=== PATIENT | male | born 1975 | race Caucasian/White ===

== ENCOUNTER 2017-03-28 12:19 | Emergency (ER) | payer OTHER ==
[~2017-03-28] VITALS: Ht 175.2 cm; Wt 136.1 kg
[2017-03-28] MEDS ORDERED: PERCOCET 325 MG1 TA2 PO (15:15)
== END 2017-03-28 14:44 | disposition home or self-care (01) ==
LOC: ED 12:19
DX: S82.891A Other fracture of right lower leg, initial encounter for closed fracture (principal); W10.9XXA Fall (on) (from) unspecified stairs and steps, initial encounter; Y93.89 Activity, other specified; Y92.89 Other specified places as the place of occurrence of the external cause; Y99.9 Unspecified external cause status

== ENCOUNTER → 2017-04-02 | Day surgery (SDC) | payer OTHER ==
[2017-03-29 15:53] LABS: BILIRUBIN NEGATIVE (NEGATIVE); BLOOD NEGATIVE (NEGATIVE); CLARITY CLEAR (CLEAR); COLOR YELLOW (YELLOW); GLUCOSE NEGATIVE (NEGATIVE); KETONE NEGATIVE (NEGATIVE); LEUKO ESTERASE NEGATIVE (NEGATIVE); NITRITE NEGATIVE (NEGATIVE); PH 5.5 (5.0-9.0); PROTEIN NEGATIVE (NEGATIVE); SPECIFIC GRAVITY 1.015 (1.005-1.030); UROBILINOGEN 0.2 E.U./dl (0.2-1.0)
[2017-03-29 15:58] LABS: BASO % 0.3 % (0.0-1.0); EOS # 0.3 10*3/uL (0.0-0.4); EOS % 2.7 % (1.0-4.0); HEMATOCRIT 44.4 % (42.0-52.0); HEMOGLOBIN 14.3 g/dl (14.0-18.0); IG # 0.1 10*3/uL (0.0-0.1); LYMPH # 1.9 10*3/uL (1.3-4.4); LYMPH % 19.9 % (27.0-41.0); MEAN CELL VOLUME 95.7 fl (80.0-94.0); MEAN CORPUSCULAR HGB 30.8 pg (27.0-31.0); MEAN CORPUSCULAR HGB CONC 32.2 g/dl (33.0-37.0); MEAN PLATELET VOLUME 10.5 fl (9.6-12.3); MONO # 0.9 10*3/uL (0.1-1.0); MONO % 9.5 % (3.0-9.0); NEUT # 6.5 10*3/uL (2.3-7.9); NEUT % 67.1 % (47.0-73.0); PLATELET COUNT AUTOMATED 188 10*3/uL (130-400); RED BLOOD COUNT 4.64 10*6/uL (4.50-5.90); WHITE BLOOD COUNT 9.7 10*3/uL (4.8-10.8)
[2017-03-29 16:03] LABS: EPITHELIAL CELLS 45-50
[2017-03-29 16:04] LABS: BACTERIA TRACE; RBC 0-2 rbc/hpf (0-2); WBC 0-2 wbc/hpf (0-5)
[2017-03-29 16:25] LABS: BUN 10 mg/dl (7-24); CARBON DIOXIDE 27 mmol/L (21-32); CHLORIDE 109 mmol/L (98-107); EST GLOM FILT AFRICAN AMERICAN > 60 ml/min; GLUCOSE 136 mg/dL (65-99); POTASSIUM 4.1 mmol/L (3.5-5.1); SODIUM 142 mmol/L (136-145)
[~2017-04-02] VITALS: Ht 175.2 cm; Wt 133.4 kg
[~2017-04-02] MED LIST: OXYCODONE AND A1 TA4 PO; PERCOCET 325 MG1 TA2 PO; PERCOCET 325 MG1 TA5 PO; ZOFRAN4 MG PO
--- NOTE | ~2017-04-02 | O ---
[place], [place] OPERATIVE NOTE NAME: LEIDY REYNAGA [facility] #: [id number] UNIT #: [id number] ROOM: DOCTOR: SALLIE ASCENCIO DO BIRTHDATE: [birth year] DOS: 04/02/2017 PREOPERATIVE DIAGNOSIS: Right ankle bimalleolar fracture. POSTOPERATIVE DIAGNOSIS: Right ankle bimalleolar fracture. PROCEDURE: Open reduction and internal fixation of right ankle fracture. SURGEON: Sallie Ascencio DO FIRST ASSISTANTS: Rachel and Carey. ANESTHESIA: General LMA intubation. INDICATIONS: The patient is a 41-year-old male with a history of a fall at home on the stairs. He suffered a fracture of the right ankle with a spiral oblique fracture of the fibula, a small avulsion from the medial malleolus and what appeared to be a widened mortise. The risks and benefits of the procedure were explained to the patient preoperatively. Preoperative labs and x-rays were obtained. It is noted that the patient came in for his surgery without the previously applied splint. DESCRIPTION OF PROCEDURE: The right ankle was marked in the holding room. The patient was brought to the operative suite. Timeout was performed. General anesthetic with endotracheal intubation was performed. The patient received Ancef 2 grams IV piggyback. The right lower extremity was prepped and draped in usual orthopedic manner. The extremity was elevated. The tourniquet was inflated to 350 mmHg. The lateral incision was planned and marked with a marking pen. C-arm was used to confirm the location. The incision was made sharply with a scalpel. Subcutaneous tissue was spread down to the level of the periosteum. Periosteum and hematoma were cleared from the fracture site. The area was copiously irrigated with normal saline. A direct reduction was performed and held with a bone holding clamp. C-arm was used to verify the reduction of the fibula. A lag screw was placed from anterior to posterior. A 7-hole plate was bent to the conformity of the distal fibula. This was held in place and evaluated under C-arm. The screw holes were drilled and filled with 4 cortical screws proximally and 2 cancellous screws distally. Position was evaluated under C-arm. The reduction was found to be adequate. The mortise was noted to be congruent. The ankle was stressed in both a varus and valgus direction and there was noted to be no significant tilting of the talus within the mortise. The small avulsion fracture at the medial malleolus was noted to be in an acceptable position. The area was copiously irrigated with normal saline. The wound was closed in a layered fashion with 2-0 Vicryl followed by 3-0 Vicryl and skin efrain. The incisions as well as the ankle joint were injected with Marcaine 0.5% plain. Xeroform, 4 x 4s, and Webril was applied. The tourniquet was released. ABD pads were added to the metatarsal heads and calcaneus. A well-padded posterior [place], [place] OPERATIVE NOTE NAME: LEIDY REYNAGA Jamarcus UNIT #: [id number] ROOM: DOCTOR: SALLIE ASCENCIO DO BIRTHDATE: [birth year] splint with a stirrup reinforcement was applied. The dressing was completed with an Jony bandage. The anesthetic was reversed. The patient was extubated and taken to the recovery room in satisfactory condition. Sponge and needle count correct. ESTIMATED BLOOD LOSS: 5 mL. SPECIMENS: None. DRAINS: None. PACKING: None. COMPLICATIONS: None. IMPLANTS: [employer] 7-hole 1/3rd tubular plate; [employer]om[employer] cortical screws 3.5 mm, measuring 14 mm, 16 mm, 18 mm x2; [employer] cancellous screws measuring 20 mm x2; partially-threaded screw measuring 26 mm. FINDINGS: Spiral oblique fracture of the fibula, distal with avulsion fracture of the medial malleolus. SALLIE ASCENCIO DO CM:OPRECORD:OPERATIVE NOTE 1000 1029 SALLIE ASCENCIO DO 04/03/17 1028 interface
[2017-04-02 07:25] VITALS: BP 114/80
[2017-04-02 09:22] VITALS: BP 118/67
[2017-04-02 09:35] VITALS: BP 128/67
[2017-04-02 09:50] VITALS: BP 115/59
[2017-04-02 10:00] VITALS: BP 120/50
[2017-04-02 10:20] VITALS: BP 117/77
== END | disposition home or self-care (01) ==
LOC: SDC 03-29 14:00
PROVIDERS: Orthopaedic Surgery
DX: S82.841A Displaced bimalleolar fracture of right lower leg, initial encounter for closed fracture (principal); W10.9XXA Fall (on) (from) unspecified stairs and steps, initial encounter; Y93.9 Activity, unspecified; Y92.9 Unspecified place or not applicable; Y99.9 Unspecified external cause status

== ENCOUNTER → 2017-04-17 | Outpatient (CLI) | payer OTHER | END | disposition home or self-care (01) | LOC: ORTHO 00:33 | DX: S82.841D Displaced bimalleolar fracture of right lower leg, subsequent encounter for closed fracture with routine healing (principal); M77.31 Calcaneal spur, right foot; Z98.890 Other specified postprocedural states; X58.XXXD Exposure to other specified factors, subsequent encounter ==

== ENCOUNTER → 2017-05-10 | Outpatient (CLI) | payer OTHER | END | disposition home or self-care (01) | LOC: ORTHO 02:56 | DX: S82.51XD Displaced fracture of medial malleolus of right tibia, subsequent encounter for closed fracture with routine healing (principal); X58.XXXD Exposure to other specified factors, subsequent encounter; Z47.1 Aftercare following joint replacement surgery ==

== ENCOUNTER → 2017-05-31 | Outpatient (CLI) | payer OTHER | END | disposition home or self-care (01) | LOC: ORTHO 00:24 | DX: S82.891D Other fracture of right lower leg, subsequent encounter for closed fracture with routine healing (principal); X58.XXXD Exposure to other specified factors, subsequent encounter ==

== ENCOUNTER → 2017-06-26 | Outpatient (CLI) | payer OTHER | END | disposition home or self-care (01) | LOC: ORTHO 03:23 | DX: S82.841D Displaced bimalleolar fracture of right lower leg, subsequent encounter for closed fracture with routine healing (principal) ==

== ENCOUNTER 2017-12-24 16:10 | Emergency (ER) | payer OTHER ==
[~2017-12-24] VITALS: Ht 175.2 cm; Wt 136.1 kg
[2017-12-24] MEDS ORDERED: ROBAXIN500 M1 PO (19:08)
== END 2017-12-24 19:10 | disposition home or self-care (01) ==
LOC: ED 16:10
DX: S13.8XXA Sprain of joints and ligaments of other parts of neck, initial encounter (principal); S00.03XA Contusion of scalp, initial encounter; W01.0XXA Fall on same level from slipping, tripping and stumbling without subsequent striking against object, initial encounter; Y93.89 Activity, other specified; Y92.69 Other specified industrial and construction area as the place of occurrence of the external cause; Y99.9 Unspecified external cause status

== ENCOUNTER → 2023-04-08 | Outpatient (CLI) | payer BC ==
[~2023-04-08] MED LIST changes: +ROBAXIN500 M1 PO
[2023-04-08 16:42] LABS: BASO # 0.1 10*3/uL (0.0-0.1); BASO % 0.6 % (0.0-1.0); BILIRUBIN Negative (Negative); BLOOD Negative (Negative); CLARITY Clear (Clear); COLOR Yellow (Yellow); EOS # 0.2 10*3/uL (0.0-0.4); EOS % 1.5 % (1.0-4.0); GLUCOSE Negative (Negative); HEMATOCRIT 47.9 % (42.0-52.0); KETONE Negative (Negative); LEUKO ESTERASE Negative (Negative); LYMPH % 20.8 % (27.0-41.0); MEAN CELL VOLUME 91.6 fl (80.0-94.0); MEAN CORPUSCULAR HGB CONC 33.8 g/dl (33.0-37.0); MEAN PLATELET VOLUME 10.7 fl (9.6-12.3); MONO # 0.7 10*3/uL (0.1-1.0); MONO % 6.9 % (3.0-9.0); NEUT # 6.8 10*3/uL (2.3-7.9); NEUT % 69.7 % (47.0-73.0); NITRITE Negative (Negative); PH 5.5 (4.5-8.0); PLATELET COUNT AUTOMATED 230 10*3/uL (130-400); RED BLOOD COUNT 5.23 10*6/uL (4.50-5.90); RED CELL DISTRI WIDTH 13.1 % (0-14.5); RETICULOCYTE % 2.18 % (0.50-2.50); SPECIFIC GRAVITY 1.025 (1.001-1.030); WHITE BLOOD COUNT 9.7 10*3/uL (4.8-10.8)
[2023-04-08 16:54] LABS: BACTERIA TRACE; RBC 0-2 rbc/hpf (0-2)
[2023-04-08 17:21] LABS: ALKALINE PHOSPHATASE 77 U/L (46-116); BUN 10 mg/dl (9-23); CHLORIDE 107 mmol/L (98-107); CHOLESTEROL 190 mg/dL (<200); GAMMA GLUTAMYL TRANSPEPTIDASE 28 U/L (0-73); LDL CHOLESTEROL 127 mg/dL (9-159); POTASSIUM 3.6 mmol/L (3.4-5.1); SGPT/ALT 22 U/L (10-49); T3 UPTAKE 24.5 % (22.4-36.7); THYROID STIM HORMONE (HS) 1.256 uIU/ml (0.550-4.780); THYROXINE (T4) TOTAL 8.9 ug/dl (4.5-10.9); TOTAL PROTEIN 7.3 gm/dL (6.0-8.0); TRIGLYCERIDES 171 mg/dl (<150)
== END | disposition home or self-care (01) ==
LOC: LAB 16:04
PROVIDERS: ATTEND Family Medicine
DX: Z12.5 Encounter for screening for malignant neoplasm of prostate (principal); E78.5 Hyperlipidemia, unspecified; R79.89 Other specified abnormal findings of blood chemistry; R53.83 Other fatigue; R74.8 Abnormal levels of other serum enzymes; E55.9 Vitamin D deficiency, unspecified

== ENCOUNTER → 2025-05-04 | Outpatient (CLI) | payer BC ==
[2025-05-04 13:27] LABS: BASO # 0.1 10*3/uL (0.0-0.1); BASO % 0.6 % (0.0-1.0); BILIRUBIN Negative (Negative); BLOOD Negative (Negative); CLARITY Cloudy (Clear); COLOR Yellow (Yellow); EOS # 0.1 10*3/uL (0.0-0.4); EOS % 1.1 % (1.0-4.0); KETONE Trace (Negative); LEUKO ESTERASE Negative (Negative); MEAN CELL VOLUME 91.8 fl (80.0-94.0); MEAN CORPUSCULAR HGB 31.2 pg (27.0-31.0); MEAN PLATELET VOLUME 10.4 fl (9.6-12.3); MONO # 0.7 10*3/uL (0.1-1.0); MONO % 6.3 % (3.0-9.0); NEUT # 8.2 10*3/uL (2.3-7.9); NEUT % 74.5 % (47.0-73.0); NITRITE Negative (Negative); NUCLEATED RED BLOOD CELL 0.0 % (0.0-0.0); NUCLEATED RED BLOOD CELL 0.0 10*3/uL (0.0-0.0); PH 5.5 (4.5-8.0); PLATELET COUNT AUTOMATED 222 10*3/uL (130-400); RED CELL DISTRI WIDTH 12.4 % (0-14.5); RETICULOCYTE % 2.03 % (0.50-2.50); SPECIFIC GRAVITY >= 1.030 (1.001-1.030); UROBILINOGEN 1.0 E.U./dl (0.0-1.0)
[2025-05-04 13:33] LABS: MUCOUS TRACE; RBC 0-2 rbc/hpf (0-2)
[2025-05-04 14:24] LABS: BUN 10 mg/dl (9-23); LDL CHOLESTEROL 125 mg/dL (9-159); SGPT/ALT 26 U/L (5-49); T3 UPTAKE 31.9 % (22.4-36.7); THYROXINE (T4) TOTAL 8.0 ug/dl (4.5-10.9); VITAMIN D, 25-HYDROXY 35.5 ng/mL (30-100)
== END | disposition home or self-care (01) ==
LOC: LAB 13:00
PROVIDERS: ATTEND Family Medicine
DX: E11.9 Type 2 diabetes mellitus without complications (principal); E78.5 Hyperlipidemia, unspecified; E55.9 Vitamin D deficiency, unspecified; R79.89 Other specified abnormal findings of blood chemistry; R53.83 Other fatigue